=== PATIENT | male | born 1940 | race Caucasian/White ===

== ENCOUNTER → 2021-02-15 | Outpatient (CLI) | payer BC ==
[~2021-02-15] MED LIST: ASCO500 PO; ASPI81CH PO; ATOR40TA PO; Coenzyme Q10200 M2 PO; FERR325 PO; LISI5 PO; METO25ER PO; NITR.4SL SL; NITR.6SL SL; PANT40 PO; TICA90TA PO
== END ==
LOC: LAB SHORT 12:42 → PLD 12:42
DX: D48.5 Neoplasm of uncertain behavior of skin (principal); C44.319 Basal cell carcinoma of skin of other parts of face
CPT/HCPCS: 88305

== ENCOUNTER 2023-07-19 19:33 | Emergency (ER) | payer BC ==
[~2023-07-19] VITALS: Ht 170.2 cm; Wt 113.4 kg
[2023-07-20 02:15] VITALS: BP 109/96
== END 2023-07-20 02:41 | disposition home or self-care (01) ==
LOC: ER 19:33
DX: M25.562 Pain in left knee (principal); Z87.891 Personal history of nicotine dependence; Z95.5 Presence of coronary angioplasty implant and graft; G47.33 Obstructive sleep apnea (adult) (pediatric); I21.9 Acute myocardial infarction, unspecified; Z79.82 Long term (current) use of aspirin; Z79.899 Other long term (current) drug therapy; I10 Essential (primary) hypertension; I25.2 Old myocardial infarction
CPT/HCPCS: 85379; 93971

== ENCOUNTER 2024-01-12 22:37 | Emergency (ER) | payer BC ==
[~2024-01-12] VITALS: Ht 170.2 cm; Wt 106.6 kg
[2024-01-12] MEDS ORDERED: METOPROLOL SUCC25 MG PO (23:16)
[2024-01-12] MEDS ORDERED: ROSUVASTATIN CA20 MG PO (23:16)
[2024-01-13 00:29] LABS: Source, Urine Clean Catch
[2024-01-13 00:34] LABS: Appearance, Urine Clear (Clear); Bilirubin, Urine Neg (Neg); Blood, Urine 2+ (Neg); Color, Urine Yellow (P-Yellow); Glucose Qualitative, Urine Neg (Neg); Ketones, Urine Neg (Neg); Leukocyte Esterase, Urine Neg (Neg); Nitrite, Urine Neg (Neg); Protein, Urine Neg (Neg); Urobilinogen, Urine NORM (Normal)
[2024-01-13 00:41] LABS: Bacteria Not Seen /hpf; Red Blood Cells, Urine 0-2 /hpf (0-2); Squamous Epithelial Cells Rare /hpf (Few); White Blood Cells, Urine 0-2 /hpf (0-5)
[2024-01-13] MEDS ORDERED: LEVFLO500 PO (01:09)
[2024-01-13] MEDS ORDERED: LevoFLOXacin 500 MG Tab PO ONE (01:10)
[2024-01-13 01:20] VITALS: BP 138/84
== END 2024-01-13 01:20 | disposition home or self-care (01) ==
LOC: ER 22:37
PROVIDERS: Student in an Organized Health Care Education/Training Program
DX: N45.1 Epididymitis (principal); Z79.899 Other long term (current) drug therapy; Z79.82 Long term (current) use of aspirin; I25.2 Old myocardial infarction; I10 Essential (primary) hypertension; E78.00 Pure hypercholesterolemia, unspecified; G47.33 Obstructive sleep apnea (adult) (pediatric); Z87.891 Personal history of nicotine dependence
CPT/HCPCS: 76857; 76870; 81001; 99284-25; A9270

== ENCOUNTER 2024-08-14 11:45 | Emergency (ER) | payer BC ==
[~2024-08-14] VITALS: Ht 170.2 cm; Wt 111.1 kg
[~2024-08-14 11:45] MED LIST changes: +LEVFLO500 PO; +METOPROLOL SUCC25 MG PO; +ROSUVASTATIN CA20 MG PO
[2024-08-14] MEDS ORDERED: Metoprolol Succinate 25 MG TABCR PO ONE (13:35)
[2024-08-14] MEDS ORDERED: ELIQUIS5 M2 PO (13:58)
[2024-08-14] MEDS ORDERED: METO50ER PO (13:58)
[2024-08-14 14:00] VITALS: BP 114/88
== END 2024-08-14 14:05 | disposition home or self-care (01) ==
LOC: ER 11:45
DX: I48.92 Unspecified atrial flutter (principal); I48.91 Unspecified atrial fibrillation; I25.2 Old myocardial infarction; I25.10 Atherosclerotic heart disease of native coronary artery without angina pectoris; Z79.899 Other long term (current) drug therapy; Z79.82 Long term (current) use of aspirin
CPT/HCPCS: 71046; 84484; 93005; 93010; 99285-25; A9270

== ENCOUNTER 2024-10-08 06:01 | Day surgery (SDC) | payer BC ==
[~2024-10-08 06:01] MED LIST changes: +ELIQUIS5 M2 PO; +METO50ER PO
[2024-10-08] MEDS ORDERED: TADA10TA (06:28)
[2024-10-08] MEDS ORDERED: PACERONE100 M1 PO (06:29)
[2024-10-08] MEDS ORDERED: NS 1,000 ML IV ONE (06:43)
[2024-10-08] MEDS ORDERED: NS 100 ML IV ONE (07:00)
--- NOTE | 2024-10-08 07:20 | NUR ---
ASSUMED CARE FROM ANESTHESIA. PT AWAKE AND VERBALIZING WELL. SB 50-55BPM POST CARDIOVERSION.
[2024-10-08 07:22] VITALS: BP 105/66
[2024-10-08 07:30] VITALS: BP 104/75
[2024-10-08 07:45] VITALS: BP 117/80
--- NOTE | 2024-10-08 08:26 | NUR ---
PT AND VERBALIZED UNERSTANDING OF WRITTEN AND VERBAL D/C INST. SB 50-55BPM ON D/C. IV REMOVED. PT TAKEN OUT OF THE HRT CENTER VIA W/C.
[2024-10-08] MEDS ORDERED: ePHEDrine Sulfate 50 MG/ML 1ML Injection IV ONE (17:03)
[2024-10-08] MEDS ORDERED: Atropine Sulfate 0.4 MG/ML 20ML VIAL IV ONE (17:03)
[2024-10-08] MEDS ORDERED: Lidocaine HCl 2% 20 MG/ML 5ML SYR IV ONE (17:03)
[2024-10-08] MEDS ORDERED: Propofol 10mg/ml 20 ml Vial (Procedural) IV ONE (17:03)
== END 2024-10-08 08:34 | disposition home or self-care (01) ==
LOC: MHTC 06:01
DX: I48.92 Unspecified atrial flutter (principal); I25.10 Atherosclerotic heart disease of native coronary artery without angina pectoris; I48.91 Unspecified atrial fibrillation; I10 Essential (primary) hypertension; I36.1 Nonrheumatic tricuspid (valve) insufficiency; I34.0 Nonrheumatic mitral (valve) insufficiency
CPT/HCPCS: 92960; 93005; 93010; J2003; J2704; J7030

== ENCOUNTER → 2024-10-21 | Outpatient (CLI) | payer BC ==
[~2024-10-21] MED LIST changes: +FARXIGA10 MG PO; +FUROSEMIDE20 MG PO; +PACERONE100 M1 PO; +TADA10TA
[2024-10-21 10:43] LABS: Albumin, Blood 3.8 g/dL (3.4-5.0); Albumin/Globulin Ratio 1.4 (0.8-1.8); Bilirubin, Total 1.3 mg/dL (0.1-1.0); Bun/Creatinine Ratio 14.1 (12.0-20.0); Calcium, Blood 9.3 mg/dL (8.5-10.1); Creatinine, Blood 1.85 mg/dL (0.60-1.20); Globulin, Blood 2.7 g/dL (2.2-4.0); Magnesium, Blood 2.2 mg/dL (1.6-2.4); Potassium, Blood 4.5 mmol/L (3.5-5.5); Total Protein, Blood 6.5 g/dL (6.4-8.2)
[2024-10-21 11:12] LABS: BASOPHILS ABSOLUTE AUTO 0.05 K/mm3 (0.00-0.23); BASOPHILS PERCENT AUTO 1 % (0-2); EOSINOPHILS PERCENT AUTO 1 % (0-6); Hematocrit 43.7 % (37.0-53.0); Hemoglobin 13.4 g/dL (13.5-17.5); IMMATURE GRAN ABSOLUTE AUTO 0.02 K/mm3 (0.00-0.10); IMMATURE GRAN PERCENT AUTO 0 % (0-1); LYMPHOCYTES ABSOLUTE AUTO 4.88 K/mm3 (0.84-5.20); LYMPHOCYTES PERCENT AUTO 51 % (21-46); MONOCYTES ABSOLUTE AUTO 0.77 K/mm3 (0.16-1.47); MONOCYTES PERCENT AUTO 8 % (4-13); Mean Corpuscular HGB 27.1 pg (26.0-34.0); Mean Corpuscular HGB Conc 30.7 g/dL (31.5-36.5); Mean Corpuscular Volume 88 fL (80-100); Mean Platelet Volume 12.6 fL (9.1-12.4); NEUTROPHILS ABSOLUTE AUTO 3.67 K/mm3 (1.96-9.15); NEUTROPHILS PERCENT AUTO 39 % (41-73); Platelet Count 166 K/mm3 (150-400); RDW Coefficient Variation 16.1 % (11.7-14.2); Red Blood Cell Count 4.95 M/mm3 (4.30-5.90); White Blood Cell Count 9.49 K/mm3 (4.00-11.30)
== END ==
LOC: LAB 10:27 → LAB SHORT 10:27
PROVIDERS: Physician Assistant
DX: R00.1 Bradycardia, unspecified (principal)
CPT/HCPCS: 80053; 83735; 83880; 84484; 85025